=== PATIENT | female | born 1970 | race Caucasian/White ===

== ENCOUNTER 2019-03-08 12:13 | Emergency (ER) | payer OTHER, BC ==
[~2019-03-08] VITALS: Ht 152.4 cm; Wt 83.5 kg
[2019-03-08 12:19] VITALS: Ht 152.4 cm; Wt 83.5 kg
[2019-03-08 13:09] LABS: BASOPHIL % 0.5 % (0-2); PLATELET COUNT 267 x10^3mcL (130-400); RED CELL DISTRIBUTION WIDTH 13.9 % (11.5-14.5)
[2019-03-08 13:20] LABS: CALCIUM 8.6 mg/dL (8.5-10.1); CARBON DIOXIDE 29.1 mmol/L (21-32); CHLORIDE SERUM 106 mmol/L (98-107); CREATININE SERUM 0.6 mg/dL (0.6-1.0); GFR1 > 60 mL/min; GLUCOSE SERUM 92 mg/dL (74-106); POTASSIUM SERUM 4.1 mmol/L (3.5-5.1); SODIUM SERUM 142 mmol/L (136-145)
[2019-03-08 13:25] LABS: ALBUMIN 3.6 g/dL (3.4-5.0); ALKALINE PHOSPHATASE 82 U/L (46-116); ALT/SGPT 31 U/L (14-59); AST/SGOT 18 U/L (15-37); BILIRUBIN TOTAL 0.7 mg/dL (0.20-1.00); TOTAL PROTEIN, SERUM 6.8 g/dL (6.4-8.2)
[2019-03-08 15:13] VITALS: BP 135/72
== END 2019-03-08 15:13 | disposition home or self-care (01) ==
LOC: ED 12:13
PROVIDERS: Emergency Medicine
DX: L23.9 Allergic contact dermatitis, unspecified cause (principal)
CPT/HCPCS: J1200; J2930; J3490

== ENCOUNTER 2019-06-29 17:16 | Emergency (ER) | payer OTHER ==
[~2019-06-29] VITALS: Ht 160 cm; Wt 85.7 kg
[2019-06-29 17:30] VITALS: Ht 160 cm; Wt 85.7 kg
[2019-06-29 19:26] VITALS: BP 157/86
== END 2019-06-29 19:26 | disposition home or self-care (01) ==
LOC: ED 17:16
DX: S61.205A Unspecified open wound of left ring finger without damage to nail, initial encounter (principal); W26.8XXA Contact with other sharp object(s), not elsewhere classified, initial encounter; Y93.89 Activity, other specified; Y92.89 Other specified places as the place of occurrence of the external cause; Y99.8 Other external cause status
CPT/HCPCS: 90715